=== PATIENT | female | born 1955 ===

== ENCOUNTER 2024-12-08 10:45 | Emergency (ER) | payer OTHER ==
[~2024-12-08] VITALS: Ht 165.1 cm; Wt 73.9 kg
[~2024-12-08 10:45] MED LIST: MICRO-K8 MEQ; SPIRONOLACTONE25 MG; TOPROL XL25 M1
[2024-12-08] MEDS ORDERED: DIPHENHYDRAMINE HCL 50 MG/ML VIAL 1ML IM ONE (11:15)
[2024-12-08] MEDS ORDERED: METHYLPREDNISOLONE SOD SUCC 125 MG VIAL IV ONE (11:15)
[2024-12-08 12:48] LABS: BASO % 0.3 % (0.1-1.2); EOS # 0.14 (0.04-0.54); EOS % 0.9 % (0.7-7.0); LYMPH # 1.87 (1.18-3.74); LYMPH % 12.2 % (19.3-53.1); MEAN PLATELET VOLUME 11.90 fl (9.4-12.4); MONO # 0.80 (0.24-0.82); MONO % 5.2 % (4.7-12.5); NEUT # 12.42 (1.56-6.13); NEUT % 81.0 % (34.0-71.1); RED CELL DISTRIBUTION WIDTH 15.3 % (11.6-14.4)
[2024-12-08 13:08] LABS: BUN CREA RATIO 19.0 (7.0-25.0); CREATININE SERUM 0.93 mg/dL (0.55-1.02); GFR 60.13; GLUCOSE FASTING 113.0 mg/dL (65-100); OSMOLALITY SERUM 291.0 MOSM/KG (275-295)
[2024-12-08 13:48] LABS: URINE APPEARANCE Clear; URINE BILIRRUBIN Negative (NEGATIVE); URINE BLOOD Negative; URINE COLOR Yellow; URINE GLUCOSE Negative (NEGATIVE); URINE KETONE Negative (NEGATIVE); URINE LEUKOCYTE Negative; URINE NITRATE Negative; URINE PROTEIN Negative (NEGATIVE); URINE UROBILINOGEN 0.2 E.U./dl
[2024-12-08 13:49] LABS: URINE BACTERIA 27.5 uL (0.0-1933); URINE CAST 0.43 uL (0.0-1.40); URINE EPITHELIAL CELLS 5.9 uL (0.0-38.8); URINE RBC 1.0 uL (0.0-20.8); URINE WBC 5.2 uL (0.0-23.2)
== END 2024-12-08 14:30 | disposition home or self-care (01) ==
LOC: ER 10:45
PROVIDERS: Emergency Medicine
DX: T78.40XA Allergy, unspecified, initial encounter (principal); R53.1 Weakness; I10 Essential (primary) hypertension; Z88.6 Allergy status to analgesic agent